=== PATIENT | male | born 1985 | race Caucasian/White ===

== ENCOUNTER 2017-06-13 17:13 | Emergency (ER) | payer OTHER ==
[2017-06-13] MEDS ORDERED: OXYCODONE-ACETAMINOPHEN 5-325 MG TABLET PO ONE (18:00)
--- NOTE | 2017-06-13 18:20 | ER Document Report ---
HPI - HPI Patient complains to provider of: Right shoulder injury Onset: This evening Onset/Duration: Sudden Quality of pain: Sharp Pain Level: 3 Context: Patient was at a trampoline park and was bouncing on an extra bouncy trampoline and landed on his right shoulder. Patient complains of pain with movement of his right upper extremity. Patient denies any head injury or loss of consciousness. Associated Symptoms: Other - Right shoulder joint pain Exacerbated by: Movement Relieved by: Denies Similar symptoms previously: No Recently seen / treated by doctor: No - ROS ROS below otherwise negative: Yes Systems Reviewed and Negative: Yes All other systems reviewed and negative - CONSTITUTIONAL Constitutional: DENIES: Fever - NEURO Neurology: DENIES: Headache - GASTROINTESTINAL Gastrointestinal: DENIES: Nausea - MUSCULOSKELETAL Musculoskeletal: REPORTS: Extremity pain - right shoulder, Back Pain. DENIES: Neck Pain - DERM Skin Color: Normal Past Medical History - General Information source: Patient - Social History Smoking Status: Never Smoker Frequency of alcohol use: Occasional Drug Abuse: None Occupation: [employer] Lives with: Family Family History: Reviewed & Not Pertinent Patient has suicidal ideation: No Patient has homicidal ideation: No - Medical History Medical History: Negative Renal/ Medical History: Denies: Hx Peritoneal Dialysis Past Surgical History: Reports: Other - back Vertical Provider Document - CONSTITUTIONAL Agree With Documented VS: Yes Exam Limitations: No Limitations General Appearance: WD/WN, No Apparent Distress - INFECTION CONTROL TRAVEL OUTSIDE OF THE [place] IN LAST 30 DAYS: No - HEENT HEENT: Atraumatic, Normocephalic - NECK Neck: Normal Inspection, Supple - RESPIRATORY Respiratory: Breath Sounds Normal, No Respiratory Distress O2 Sat by Pulse Oximetry: 97 - CARDIOVASCULAR Cardiovascular: Regular Rate, Regular Rhythm Pulses: Normal: Radial - MUSCULOSKELETAL/EXTREMETIES Musculoskeletal/Extremeties: Tender - Right shoulder joint tenderness that is worse with range of motion. Patient with full passive range of motion. Tenderness increases with extension and abduction. No concern for dislocation - NEURO Level of Consciousness: Awake, Alert, Appropriate Motor/Sensory: No Motor Deficit - DERM Integumentary: Warm, Dry, No Rash Course - Vital Signs Vital signs: Temp Pulse Resp BP Pulse Ox 98.6 F 104 H 18 128/80 H 97 06/13/17 17:25 06/13/17 17:25 06/13/17 17:25 06/13/17 17:25 06/13/17 17:25 - Diagnostic Test Radiology reviewed: Image reviewed, Reports reviewed Procedures - Immobilization Right Shoulder Pre-Proc Neuro Vasc Exam: Normal Immobilizer type: Shoulder immobilizer Performed by: PCT Post-Proc Neuro Vasc Exam: Normal Alignment checked and good: Yes Discharge - Discharge Clinical Impression: Trapezius muscle strain Qualifiers: Encounter type: initial encounter Laterality: right Qualified Code(s): S46.811A - Strain of other muscles, fascia and tendons at shoulder and upper arm level, right arm, initial encounter Sprain of shoulder, right Qualifiers: Encounter type: initial encounter Shoulder sprain type: unspecified sprain Qualified Code(s): S43.401A - Unspecified sprain of right shoulder joint, initial encounter Condition: Stable Disposition: HOME, SELF-CARE Instructions: Ice & Elevation ([facility]), Muscle Relaxers ([facility]), Muscle Strain ([facility]) , Shoulder Injury ([facility]) Additional Instructions: Return immediately for any new or worsening symptoms Followup with your primary care provider, call tomorrow to make a followup appointment Follow-up with orthopedic doctor, call Thursday for an appointment time. Wear sling for the next 4-5 days and then remove. Gentle range of motion exercises to shoulder Prescriptions: Methocarbamol [Robaxin 500 Mg Tablet] 500 mg PO QID PRN #25 tablet PRN Reason: Oxycodone HCl/Acetaminophen [Percocet 5-325 mg Tablet] 1 tab PO ASDIR PRN #15 tablet PRN Reason: Referrals: [facility] [Provider Group] - 06/15/17
--- NOTE | 2017-06-13 18:23 | RADIOLOGY REPORT (SQ) ---
EXAM DESCRIPTION: SHOULDER RIGHT 2 OR MORE VIEWS COMPLETED DATE/TIME: 06/13/2017 6:14 pm REASON FOR STUDY: fall on shoulder at trampoline park COMPARISON: None. NUMBER OF VIEWS: Three views. TECHNIQUE: Internal rotation, external rotation, and Y view images acquired of the right shoulder. LIMITATIONS: None. FINDINGS: MINERALIZATION: Normal. BONES: No acute fracture or dislocation. No worrisome bone lesions. JOINTS: No dislocation. VISUALIZED LUNGS AND RIBS: No pneumothorax. No rib fracture. SOFT TISSUES: No radiopaque foreign body. OTHER: No other significant finding. IMPRESSION: NEGATIVE STUDY OF THE RIGHT SHOULDER. NO RADIOGRAPHIC EVIDENCE OF ACUTE INJURY. TECHNICAL DOCUMENTATION: JOB ID: [id number] [employer]- All Rights Reserved Reading location - IP/workstation name: [email or web address]
[2017-06-13 19:02] VITALS: BP 140/77
== END 2017-06-13 19:02 | disposition home or self-care (01) ==
LOC: ER 17:13
DX: S43.401A Unspecified sprain of right shoulder joint, initial encounter (principal); S29.012A Strain of muscle and tendon of back wall of thorax, initial encounter; W19.XXXA Unspecified fall, initial encounter; Y93.44 Activity, trampolining; Y92.838 Other recreation area as the place of occurrence of the external cause
CPT/HCPCS: 99283; 73030; L3650

== ENCOUNTER 2018-02-27 13:01 | Emergency (ER) | payer OTHER ==
--- NOTE | 2018-02-27 14:29 | ER Document Report ---
HPI - HPI Patient complains to provider of: groin pain Time Seen by Provider: 02/27/18 13:28 Onset: Other Onset/Duration: Persistent Quality of pain: Achy Severity: Severe Pain Level: 4 Context: Patient presents to the emergency department with c/o pain to left groin and numbness to left anterior thigh. Reports he was treated for his back pain last week. He no longer has back pain. Denies trauma. Denies fever vomiting diarrhea. Denies testicular pain. Denies urinary or bowel incontinence or retention. Reports he has no problem in obtaining an erection. Denies use of IV drugs. Patient ambulating without problems. Patient works at [employer] standing up and sitting down multiple times, patient reports he has muscle relaxers at home does not taken because it does not do anything for him. Associated Symptoms: None Exacerbated by: Walking Relieved by: Denies Similar symptoms previously: Yes Recently seen / treated by doctor: Yes Past Medical History - General Information source: Patient - Social History Smoking Status: Unknown if Ever Smoked Cigarette use (# per day): No Frequency of alcohol use: None Drug Abuse: None Occupation: [employer] Family History: Reviewed & Not Pertinent Patient has suicidal ideation: No Patient has homicidal ideation: No - Medical History Medical History: Negative Renal/ Medical History: Denies: Hx Peritoneal Dialysis Past Surgical History: Reports: Other - back Vertical Provider Document - CONSTITUTIONAL Agree With Documented VS: Yes Exam Limitations: No Limitations General Appearance: WD/WN, No Apparent Distress - INFECTION CONTROL TRAVEL OUTSIDE OF THE [place] IN LAST 30 DAYS: No - HEENT HEENT: Atraumatic, Normocephalic - NECK Neck: Normal Inspection, Supple. negative: Lymphadenopathy-Left, Lymphadenopathy-Right - RESPIRATORY Respiratory: No Respiratory Distress - CARDIOVASCULAR Cardiovascular: Regular Rate - GI/ABDOMEN Gastrointestinal: Abdomen Soft, Abdomen Non-Tender - REPRODUCTIVE Notes: Left femoral pulse strong - BACK Back: Normal Inspection - No Obvious deformity good distal movement and sensation decreased reflex left patellar, no weakness, no erythema/warmth or swelling - MUSCULOSKELETAL/EXTREMETIES Musculoskeletal/Extremeties: MAEW, FROM, Non-Tender - NEURO Level of Consciousness: Awake, Alert, Appropriate Motor/Sensory: No Motor Deficit - DERM Integumentary: Warm, Dry Adult Front & Back Diagram: 1 - Patient reports numbness 2 - Patient complains of pain Course - Re-evaluation Re-evalutation: 02/27/18 14:36 Possible patient strained his left groin compensating for his back pain. Consulted Dr. Porter regarding patient's symptoms. He agrees on treatment plan muscle relaxers pain medication. Patient does have a follow-up visit with his primary care provider. Patient was instructed with plan of care. He was also instructed on red flags of back pain to include urinary bowel incontinence or retention increased numbness or tingling unable to walk concerns. He verbalized understanding to all instructions. Dictation of this chart was performed using voice recognition software; therefore, there may be some unintended grammatical errors. - Vital Signs Vital signs: Temp Pulse Resp BP Pulse Ox 98.7 F 83 16 137/94 H 99 02/27/18 13:06 02/27/18 13:06 02/27/18 13:06 02/27/18 13:06 02/27/18 13:06 Discharge - Discharge Clinical Impression: Left groin pain, Numbness of left anterior thigh Condition: Stable Disposition: HOME, SELF-CARE Instructions: Muscle Relaxers ([facility]) Additional Instructions: *You have been evaluated for Groin pain and left anterior thigh numbess *Take your muscle relaxer and pain medication as prescribed *Rest/Ice- heat as directed *Follow up with your primary care provider Thursday as scheduled *Return to ED for worsening condition, changes, needs, urinary or bowel incontinence or retention, increased numbness, unable to walk, concerns Prescriptions: Hydrocodone/Acetaminophen [[place] 5-325 mg Tablet] 1 tab PO QID #15 tablet Forms: Return to Work Referrals: RICK SCHUSTER MD [Primary Care Provider] - 03/02/18
[2018-02-27 14:47] VITALS: BP 130/86
== END 2018-02-27 14:53 | disposition home or self-care (01) ==
LOC: ER 13:01
DX: R20.0 Anesthesia of skin (principal); R10.30 Lower abdominal pain, unspecified
CPT/HCPCS: 99283